=== PATIENT | female | born 1980 ===

== ENCOUNTER 2021-09-25 11:04 | Outpatient (CLI) | payer BC | END 2021-09-25 11:05 | disposition home or self-care (01) | LOC: LAB 11:04 | PROVIDERS: ATTEND Obstetrics & Gynecology | DX: Z01.419 Encounter for gynecological examination (general) (routine) without abnormal findings (principal) | CPT/HCPCS: 36415 ==

== ENCOUNTER 2021-10-09 08:17 | Outpatient (CLI) | payer BC ==
--- NOTE | 2021-10-09 10:20 | Mammography Report ---
BILATERAL DIGITAL DIAGNOSTIC MAMMOGRAM CONVENTIONAL, 10/09/2021 RIGHT COMPLETE BREAST ULTRASOUND CLINICAL INFORMATION / INDICATION: The patient's doctor reports that the right breast feels more dens e than the left breast. Patient also has a family history of breast cancer, with mother diagnosed at age 38. Z80.3 TECHNIQUE: Digital bilateral mammographic imaging was performed. Complete ultrasound of all four (4) quadrants was performed. COMPARISON: Baseline FINDINGS: Breast Density: The breasts are heterogeneously dense, which may obscure small masses. MAMMOGRAPHIC FINDINGS: No dominant mass, suspicious calcifications, or architectural distortion in ei ther breast. ULTRASOUND FINDINGS: Complete sonographic evaluation of all 4 quadrants and retroareolar region was p erformed. Complete ultrasound of the right breast reveals several subcentimeter benign cysts. No stratton spicious sonographic abnormality identified. IMPRESSION: 1. There is no suspicious mammographic or sonographic abnormality to account for the reported increas ed density of the right breast compared with the left, therefore clinical correlation is recommended. Follow up recommendation: Routine yearly screening mammogram. BI-RADS Category 2: BENIGN. A "normal" or negative report should not discourage follow up or biopsy of a clinically significant f inding. A written summary of these findings will be mailed to the patient. The patient will be entered into a mammography reporting system which will generate a reminder letter for the patient's next appointmen t at the appropriate interval. According to the [employer], yearly mammograms are recommended starting at age 40 and continuing as long as a woman is in good health. Breast MRI is recommended for women with an teri roximately 20-25% or greater lifetime risk of breast cancer, including women with a strong family his tory of breast or ovarian cancer and women who have been treated for Hodgkin's disease. Signer Name: Reyna Sheth MD Signed: 10/09/2021 10:16 AM Workstation Name: [id number]
== END 2021-10-09 08:18 | disposition home or self-care (01) ==
LOC: MAMMO 08:17
PROVIDERS: ATTEND Obstetrics & Gynecology
DX: N60.01 Solitary cyst of right breast (principal); N63.0 Unspecified lump in unspecified breast; Z80.3 Family history of malignant neoplasm of breast
CPT/HCPCS: 77066; 77067